=== PATIENT | female | born 1960 ===

== ENCOUNTER 2018-09-21 13:56 | Outpatient (CLI) | payer OTHER ==
--- NOTE | 2018-09-21 16:39 | BD ---
Exam: DEXA Bone Density 09/21/18 HISTORY: Screening study. 58-year-old female. COMPARISON: None. FINDINGS: Lumbar Spine: BMD (g/cm2) T-Score Z-Score L1 0.664 -3.0 -1.8 L2 0.729 -2.7 -1.5 L3 0.760 -2.9 -1.6 L4 0.686 -3.4 -2.0 L1-L4 0.711 -3.1 -1.8 Femoral Neck: 0.561 -2.6 -1.4 Total Femur: 0.736 -1.7 -0.8 Impression: Lumbar spine: WHO classification is osteoporosis. Fracture risk is high. Femoral neck: WHO classification is osteoporosis. Ten year fracture risk not reported because some ke y scores are at or below -2.5. POS: [facility]
== END 2018-09-21 13:57 | disposition home or self-care (01) ==
LOC: BICMAMMO 13:56
PROVIDERS: ATTEND Obstetrics & Gynecology
DX: Z12.31 Encounter for screening mammogram for malignant neoplasm of breast (principal); Z13.820 Encounter for screening for osteoporosis; M81.0 Age-related osteoporosis without current pathological fracture
CPT/HCPCS: 77063; 77067; 77080